=== PATIENT | female | born 1995 | race Caucasian/White ===

== ENCOUNTER 2019-12-24 17:37 | Inpatient (IN) ==
[2019-12-24] MEDS ORDERED: OXYTOCIN 30 UNITS/500 ML BAG IV PRN (19:26)
[2019-12-24] MEDS ORDERED: LACTATED RINGER'S 1,000 ML IV PRN (19:26)
[2019-12-24 19:46] LABS: Hematocrit (blood only) 33.8 % (37-47); Hemoglobin 11.6 g/dL (12.0-16.0); Mean Corpuscular Hemoglobin 30.3 pg (25-34); Mean Corpuscular Volume 88.3 fL (80-100); Mean Platelet Volume 9.4 fL (7.4-10.4); Platelet Count 163 K/uL (130-400); RDW Coefficient of Variation 13.9 % (11.5-14.5); RDW Standard Deviation 44.4 fL (36.4-46.3); Red Blood Count 3.83 M/uL (4.2-5.4); White Blood Count 9.23 K/uL (4.8-10.8)
[2019-12-24] MEDS ORDERED: DINOPROSTONE 10 MG INSERT PV ONE (20:15)
[2019-12-24 20:17] LABS: Mean Corpuscular Hgb Conc 34.3 g/dL (32-36)
[2019-12-24] MEDS ORDERED: ZOLPIDEM TARTRATE 5 MG TAB PO PRN (20:27)
[2019-12-24] MEDS ORDERED: BUTORPHANOL TARTRATE 1 MG/ML VIAL IV PRN (20:52)
--- NOTE | 2019-12-24 20:58 | Obstetrical Progress Note ---
Date of Service December 24, 2019 Assessment & Plan Admission and Anticipated Discharge Date Admission Date: December 24, 2019 Physical Exam Physical Exam: Admit Note 24 F P0000 at 25.2 weeks admitted with demise. Patient was seen in the office today with no FHT and ultrasound reveals demise. No bleeding or contractions. No history of high blood pressure or medical problems with this . NKA. care was uncomplicated. Cervix closed and thick. Cervidil 10 mg placed vaginally. Results & Data ([facility]) Vital Signs (Past 12 Hours) Vital Signs Temp Pulse Resp BP 12/24/19 19:12 37.0 C 111 H 20 132/79 12/24/19 18:18 36.9 C 114 H 18 130/73
--- NOTE | 2019-12-25 08:43 | History & Physical Report ---
Date of Service December 25, 2019 Assessment & Plan (1) IUFD at 20 weeks or more of gestation: 24 yo at 25.3 wks with IUFD, unfavorable cervix VSS Afebrile Desires genetic testing and Autopsy Labs Plan to continue with cervical ripening Unable to tolerate VE, PO Cytotec is ordered All questions were answered History of Present Illness Primary Care Provider: NO PCP Patient is a 24 yo at 25.2 wks who was admitted yesterday by Dr Zazueta for IUFD DFM for the last 4 days and presented to office yesterday, NO FHR found, placenta anterior, 24+ wks on US Cervidil was placed last night Patient has no complaints other than sadness No ctxs/ LOF/VB/ Fever/ chils/ N&V/ HUERTAS/ Change in vision Her has been uncomplicated Allergies Allergy/AdvReac Type Severity Reaction Status Date / Time No Known Allergies Allergy Verified 01/19/16 09:16 Home Medications Home Medications Medication Instructions Recorded Confirmed Type PNV cmb#95-ferrous fumarate-FA 1 tab PO DAILY 12/24/19 12/24/19 History [] Patient History Medical History No known health problems Surgical History Status post left foot surgery December 2018 Family History Other No known health problems Social History Preferred Language: Albanian Communication Ability: Effective Cpr Ambulance Driver Required: No Beliefs That Will Affect Care: None marital status: Single Current Living Situation: Significant Other Current Living Situation Comment: Lives with Efrain Other Information That Helps Us Care for You: No Feels Safe at Home: Yes Safety Concerns: Feels Safe At This Time Smoking Status: Never smoker Hx Alcohol Use: No Hx Substance Use: 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 Review of Systems All systems reviewed & are unremarkable except as noted in HPI & below Physical Exam Constitutional: WD/WN, vitals as above well developed and well nourished Sad Genitourinary: normal external appearance VE; Cervidil was at introitus, removed Cervix closed and firm Results & Data Vital Signs (Past 12 Hours) Vital Signs Temp Pulse Resp BP 12/25/19 08:01 116 H 126/73 12/25/19 05:20 37.0 C 116 H 18 118/78 12/24/19 22:43 37.0 C 96 H 18 125/67 Laboratory Results Lab Results 12/24/19 Range/Units 19:36 WBC 9.23 (4.8-10.8) K/uL RBC 3.83 L (4.2-5.4) M/uL Hgb 11.6 L (12.0-16.0) g/dL Hct 33.8 L (37-47) % MCV 88.3 (80-100) fL MCH 30.3 (25-34) pg MCHC 34.3 (32-36) g/dL RDW Std Deviation 44.4 (36.4-46.3) fL RDW Coeff of Garo 13.9 (11.5-14.5) % Plt Count 163 (130-400) K/uL MPV 9.4 (7.4-10.4) fL
[2019-12-25 08:50] LABS: Basophils # (auto) 0.03 K/uL (0-0.2); Basophils % (auto) 0.3 %; Eosinophils # (auto) 0.04 K/uL (0-0.5); Eosinophils % (auto) 0.4 %; Hematocrit (blood only) 34.3 % (37-47); Hemoglobin 11.6 g/dL (12.0-16.0); Immature Granulocytes # (auto) 0.04 K/uL (0.00-0.02); Immature Granulocytes % (auto) 0.4 %; Lymphocytes # (auto) 2.49 K/uL (1.2-3.4); Mean Corpuscular Hemoglobin 29.7 pg (25-34); Mean Corpuscular Hgb Conc 33.8 g/dL (32-36); Mean Corpuscular Volume 87.9 fL (80-100); Mean Platelet Volume 9.5 fL (7.4-10.4); Monocytes # (auto) 0.83 K/uL (0.11-0.59); Monocytes % (auto) 8.3 %; Neutrophils # (auto) 6.54 K/uL (1.4-6.5); Neutrophils % (auto) 65.6 %; Platelet Count 181 K/uL (130-400); RDW Coefficient of Variation 13.8 % (11.5-14.5); RDW Standard Deviation 44.5 fL (36.4-46.3); White Blood Count 9.97 K/uL (4.8-10.8)
[2019-12-25] MEDS ORDERED: miSOPROStoL 100 MCG TAB PO ONE (09:00)
[2019-12-25 09:17] LABS: Alanine Aminotransferase 27 U/L (12-78); Albumin Level 2.7 gm/dl (3.4-5.0); Aspartate Aminotransferase 21 U/L (15-37); Blood Urea Nitrogen 5 mg/dl (7-18); Calcium 8.8 mg/dl (8.5-10.1); Carbon Dioxide 24 mmol/L (21-32); Chloride 108 mmol/L (98-107); Est GFR (African American) > 150.0; Est GFR (Non-African American) 134.6; Glucose 113 mg/dl (70-99); Potassium 3.5 mmol/L (3.5-5.1); Sodium 137 mmol/L (136-145)
[2019-12-25 09:28] LABS: Albumin Globulin Ratio 0.6 (0.9-2); Alkaline Phosphatase 81 U/L (45-117); Bilirubin,Total 0.3 mg/dl (0.2-1); Globulin 4.3 gm/dl (2.5-4.0)
[2019-12-25 10:16] LABS: Amphetamines+Metham, Urine Neg (Neg); Barbiturates, Urine Neg (Neg); Benzodiazepine, Urine Neg (Neg); Cocaine, Urine Neg (Neg); MDMA (Ecstacy), Urine Neg (Neg); Methadone, Urine Neg (Neg); Opiate, Urine Neg (Neg); Phencyclidine, Urine Neg (Neg)
[2019-12-25] MEDS ORDERED: BUTORPHANOL TARTRATE 1 MG/ML VIAL IV PRN (13:05)
[2019-12-25] MEDS: miSOPROStoL 200 MCG TAB PO SCH ×3 (13:29→22:01)
--- NOTE | 2019-12-25 14:04 | Obstetrical Progress Note ---
Date of Service December 25, 2019 Assessment & Plan Admission and Anticipated Discharge Date Admission Date: December 24, 2019 Subjective Patient is reevaluated She feels about the same, no pain Occasional mild cramping, pain is 1-2/10 No N&V/ LOF/VB Labs pending All questions were answered Continue with cervical ripening Results & Data ([facility]) Vital Signs (Past 12 Hours) Vital Signs Temp Pulse Resp BP 12/25/19 12:13 109 H 127/74 12/25/19 12:12 37.2 C 18 12/25/19 08:01 37.4 C 16 126/73 12/25/19 05:20 37.0 C 116 H 18 118/78
[2019-12-25] MEDS ORDERED: ePHEDrine sulfate 50 MG/ML AMP ONE (19:28)
[2019-12-25] MEDS ORDERED: fentaNYL 2MCG/ML ROPIV 1.25MG/ML 100 ML BAG EPI ONE (19:29)
[2019-12-25] MEDS ORDERED: BUPIVACAINE 0.25% 30 ML VIAL ONE (19:29)
[2019-12-25] MEDS ORDERED: fentaNYL citrate 100 MCG/2 ML VIAL ONE ×2 (19:29→20:34)
--- NOTE | 2019-12-25 20:10 | Obstetrical Progress Note ---
Date of Service December 25, 2019 Assessment & Plan Admission and Anticipated Discharge Date Admission Date: December 24, 2019 Subjective Patient is reevaluated She feels constant cramping and crying with discomfort Desires epidural for pain Minimal bleeding Declines VE now Dr. Talbert is here for epidural AROM after epidural Results & Data ([facility]) Vital Signs (Past 12 Hours) Vital Signs Temp Pulse Resp BP 12/25/19 19:27 37.2 C 18 12/25/19 19:23 113 H 142/93 H 12/25/19 14:53 37.1 C 100 H 20 126/78 12/25/19 12:13 109 H 127/74 12/25/19 12:12 37.2 C 18
--- NOTE | 2019-12-25 20:36 | Anesthesiology Consultation ---
Date of Service December 25, 2019 Assessment & Plan Chart Review Chart Review: Acceptable Risk for Labor Epidural Consults Requested none History Height/Weight Height: 5 ft 3 in Weight: 67.585 kg Allergies Allergy/AdvReac Type Severity Reaction Status Date / Time No Known Allergies Allergy Verified 01/19/16 09:16 Medications Home Medications Medication Instructions Recorded Confirmed Last Taken PNV cmb#95-ferrous fumarate-FA 1 tab PO DAILY 12/24/19 12/24/19 12/23/19 [] Active Medications Generic Name Dose Route Start Last Admin Trade Name Freq PRN Reason Stop Dose Admin Lactated Ringer's 1,000 mls @ 125 mls/hr 12/24/19 19:26 12/25/19 20:21 Lr IV 12/26/19 19:25 125 mls/hr .Q8H PRN Infusion L&D Protocol Protocol Misoprostol 200 mcg 12/25/19 13:00 12/25/19 17:32 Cytotec PO 01/24/20 12:59 200 mcg Q4 GABRIELLA Administration Zolpidem Tartrate 5 mg 12/24/19 20:27 12/25/19 00:32 Ambien PO 01/23/20 20:26 5 mg HS PRN Administration Sleep Past Medical History Medical History No known health problems Past Family History Family History Other No known health problems Past Surgical History Surgical History Status post left foot surgery December 2018 Social History Smoking Status: Never smoker Hx Alcohol Use: No Hx Substance Use: No Physical Exam Vital Signs Last Vital Signs Temp 37.2 C 12/25/19 19:27 Pulse 81 12/25/19 20:34 Resp 18 12/25/19 20:30 BP 114/59 L 12/25/19 20:34 Pulse Ox 97 12/25/19 20:34 Testing Laboratory Results 12/25/19 08:33 12/25/19 08:33 Blood Type O Positive 12/25/19 08:33
[2019-12-25] MEDS ORDERED: DiphenhydrAMINE HCL 50 MG/ML VIAL IV PRN (20:38)
[2019-12-25] MEDS ORDERED: NALOXONE HCL 0.4 MG/1 ML VIAL/CARP IV PRN (20:38)
[2019-12-25] MEDS ORDERED: fentaNYL 2MCG/ML ROPIV 1.25MG/ML 100 ML BAG EPI PRN (20:38)
[2019-12-25] MEDS ORDERED: ePHEDrine sulfate 50 MG/ML AMP IV PRN (20:38)
[2019-12-25] MEDS ORDERED: NALBUPHINE HCL INJ 10 MG/ML AMP IV PRN (20:38)
[2019-12-25] MEDS ORDERED: NALOXONE HCL 1 MG in SODIUM CHLORIDE 0.9% 1000ML 1,000 ML IV PRN (20:38)
[2019-12-25] MEDS ORDERED: OXYTOCIN 30 UNITS/500 ML BAG IV PRN ×2 (21:45→23:27)
--- NOTE | 2019-12-25 21:45 | Obstetrical Progress Note ---
Date of Service December 25, 2019 Assessment & Plan Admission and Anticipated Discharge Date Admission Date: December 24, 2019 Subjective Patient is reevaluated Due for 4th dose of Cytotec She feels comfortable now, received epidural for pain Minimal bleeding VE; 1/ 70%/ -2, AROM'ed, abundant clear fluid, vertex but ballotable Discussed labs Ctxs q 2-3 min Plan to hold on Cytotec and augment with Pitocin as needed Continue to monitor Results & Data ([facility]) Vital Signs (Past 12 Hours) Vital Signs Temp Pulse Resp BP Pulse Ox 12/25/19 21:41 100 H 93 12/25/19 21:40 104 H 130/63 12/25/19 21:39 104 H 95 12/25/19 21:34 97 H 94 12/25/19 21:29 97 H 95 12/25/19 21:28 98 H 94 12/25/19 21:24 102 H 96 12/25/19 21:23 95 H 113/68 12/25/19 21:22 97 H 94 12/25/19 21:19 96 H 95 12/25/19 21:14 92 H 96 12/25/19 21:11 103 H 94 12/25/19 21:09 94 H 96 12/25/19 21:08 90 109/65 12/25/19 21:05 93 H 94 12/25/19 21:04 86 95 12/25/19 20:59 92 H 93 12/25/19 20:55 18 12/25/19 20:54 90 116/75 96 12/25/19 20:50 86 18 112/59 L 12/25/19 20:49 86 97 12/25/19 20:45 18 12/25/19 20:44 89 97 12/25/19 20:39 91 H 98 12/25/19 20:37 18 12/25/19 20:36 83 114/68 12/25/19 20:34 81 114/59 L 97 12/25/19 20:32 84 110/66 12/25/19 20:30 78 18 109/65 12/25/19 20:29 79 96 12/25/19 20:28 82 112/62 12/25/19 20:25 74 18 119/54 L 12/25/19 20:24 83 97 12/25/19 20:23 107 H 94 12/25/19 20:20 91 H 18 115/74 12/25/19 20:19 94 H 96 12/25/19 20:14 111 H 98 12/25/19 20:03 18 12/25/19 19:27 37.2 C 18 12/25/19 19:23 113 H 142/93 H 12/25/19 14:53 37.1 C 100 H 20 126/78 12/25/19 12:13 109 H 127/74 12/25/19 12:12 37.2 C 18
[2019-12-25] MEDS ORDERED: BENZOCAINE 20% AER SPR 82.5 GM CAN EXT PRN (23:27)
[2019-12-25] MEDS ORDERED: SUPERCREAM 0.870% 15 GM JAR EXT PRN (23:27)
[2019-12-25] MEDS ORDERED: HYDROCORTISONE ACETATE 25 MG SUPP PR PRN (23:27)
[2019-12-25] MEDS ORDERED: DIPHTHERIA/TETANUS/PERTUSSIS 0.5 ML SYR/VIAL IM ONE (23:27)
[2019-12-25] MEDS ORDERED: ACETAMINOPHEN 325 MG TAB PO PRN (23:27)
[2019-12-25] MEDS ORDERED: OXYCODONE/ACETAMINOPHEN 5mg/325mg TAB PO PRN (23:27)
[2019-12-25] MEDS ORDERED: IBUPROFEN 600 MG TAB PO PRN (23:27)
[2019-12-25] MEDS ORDERED: bisacodyL 10 MG SUPP PR PRN (23:27)
--- NOTE | 2019-12-26 07:00 | Delivery Summary ---
DATE OF OPERATION: 12/25/2019 TIME OF DELIVERY OF BABY: 23:16 DETAILS OF DELIVERY: The patient is a 24-year-old G1, P0 at 25 weeks and 3 days, who was admitted the day before with intrauterine demise diagnosed in the office with an ultrasound. She received Cervidil overnight and her cervix was closed on the morning of 12/25/2019 and then she started on p.o. Cytotec x 3 doses and received epidural for pain. Then she was AROM'ed and soon after that she was found to be fully dilated and baby was in the perineum. She pushed once and delivered the whole baby without difficulty. The patient did not want to look at the baby. Cord was clamped x2 and cut and baby was handed off to the waiting nursing team. The cord was noted to be hyper-coiled twisted around itself many times. Then the placenta was found to be in the vagina, delivered spontaneous as intact and complete. It appeared to be normal. The uterus was explored, found to be empty. Lower segment was cleared off all clots and debris. Fundus was firm. EBL was 100 mL. The perineum and vagina was intact. Then the patient desired cytogenetic testing and declined autopsy. A small piece of placenta was incised and sent to the lab in a special cup for cytogenetic testing and the fetus was examined to be grossly normal, normal hands and feet, normal fingers and toes, and slight edema of neck and slight skin maceration around the neck and abdomen was found to be ecchymotic which might indicate abdominal bleeding. Normal male genitalia, normal spine and head. The mom tolerated the procedure well. Instrument and sponge count was correct x1. No complications happened. I was present during whole procedure. I attest to the content of the Intraoperative Record and any orders documented therein. Any exceptions are noted below. SANDRAD
[2019-12-26 07:03] LABS: Hematocrit (blood only) 34.7 % (37-47); Hemoglobin 11.7 g/dL (12.0-16.0); Mean Corpuscular Hemoglobin 29.9 pg (25-34); Mean Corpuscular Hgb Conc 33.7 g/dL (32-36); Mean Corpuscular Volume 88.7 fL (80-100); Mean Platelet Volume 9.8 fL (7.4-10.4); Platelet Count 157 K/uL (130-400); RDW Coefficient of Variation 13.9 % (11.5-14.5); Red Blood Count 3.91 M/uL (4.2-5.4)
[2019-12-26] MEDS ORDERED: FERROUS SULFATE 325 MG TAB PO SCH (08:00)
[2019-12-26] MEDS ORDERED: PRENATAL VITAMIN 1 TAB PO SCH (08:00)
[2019-12-26] MEDS ORDERED: DOCUSATE SODIUM 100 MG CAP PO SCH (08:00)
--- NOTE | 2019-12-26 08:31 | Anesthesia Procedure Note ---
Date of Service December 26, 2019 Anesthesia Post Epidural Note Vital Signs Vital Signs: Temp Pulse Resp BP Pulse Ox 37.3 C 88 16 113/83 94 12/26/19 03:45 12/26/19 08:24 12/26/19 03:45 12/26/19 08:24 12/25/19 23:22 Notes Mental Status: alert / awake / arousable and participated in evaluation Nausea / Vomiting: adequately controlled Pain: adequately controlled Airway Patency, RR, SpO2: stable & adequate BP & HR: stable & adequate Hydration State: stable & adequate Neuraxial Anesthesia: was administered and sensory block is resolving Anesthetic Complications: no major complications apparent and Pt Satisfied with anesthetic care Epidural: Removed without complications and With tip intact Notes: Epidural site clean, dry and intact. No signs of edema, erythema or bruising at insertion site. Pt instructed to request anesthesia if she has residual lower extremity numbness or if she develops lower extremity pain or weakness, back pain or headache. Informed patient that she is at increased risk of developing PDPH. Will order cosyntropin in attempt to decrease possible occurrence. Encouraged patient to drink lots of fluids and rest as possible. If she does develop a headache, she was encouraged to lay flat and drink caffeine. In addition, we will call patient at home each day over the next few days to screen for headache development. Plan is to bring the patient direct to OB or to [facility] if she does require a blood patch in order to avoid the patient needing to present to the ED due to COVID-19.
[2019-12-26] MEDS ORDERED: COSYNTROPIN 1,000 MCG in SODIUM CHLORIDE 0.9% 50 ML IV ONE (09:15)
[2019-12-26] MEDS ORDERED: SERTRALINE HCL 50 MG TABLET PO STA (10:02)
--- NOTE | 2019-12-26 11:54 | Obstetrical Progress Note ---
Date of Service December 26, 2019 Assessment & Plan (1) IUFD at 20 weeks or more of gestation: demise s/p vaginal delivery pt doing well anticipate disch this PM Subjective Ambulation: ambulating normally Voiding: no voiding problems Passing Gas:: Yes Diet Tolerance:: regular diet Lochia:: Small Feeding Type:: breast feeding Review of Systems All systems reviewed & are unremarkable except as noted in HPI & below Results & Data Vital Signs (Past 12 Hours) Vital Signs Temp Pulse Resp BP 12/26/19 11:49 92 H 136/89 12/26/19 08:24 88 113/83 12/26/19 08:00 37.1 C 20 12/26/19 03:45 37.3 C 16 12/26/19 03:44 96 H 116/56 L 12/26/19 01:49 96 H 120/71 12/26/19 01:40 37.2 C 18 12/26/19 01:38 88 129/76 12/26/19 01:37 100 H 125/79 12/26/19 01:23 94 H 107/55 L 12/26/19 01:10 18 12/26/19 01:08 100 H 113/70 12/26/19 00:53 96 H 121/68 12/26/19 00:40 18 12/26/19 00:38 100 H 114/65 12/26/19 00:25 18 12/26/19 00:23 100 H 120/73 12/26/19 00:10 18 12/26/19 00:08 103 H 115/75 12/25/19 23:55 18 12/25/19 23:54 109 H 120/69 12/25/19 23:53 127 H 139/67
[2019-12-26] MEDS ORDERED: bisacodyL 5 MG TABEC PO SCH (20:00)
--- NOTE | 2019-12-27 10:42 | Communication Note ---
Date of Service: December 27, 2019 At 0920 I telephoned pt regarding a possible PDPH, NO answer. I left a message on answering machine advising her to call hospital skoog operator and ask for me michael smith she have a PDPH and wish to be treated.
[2019-12-27 23:40] LABS: Anti Cardiolipin Ab IgG <14 GPL; Anti Cardiolipin Ab IgM <12 MPL; Anti-Cardiolipin Ab IgA <11 APL; B2 Glycoprotein IgA <9 SAU (<=20); B2 Glycoprotein IgG <9 SGU (<=20); B2 Glycoprotein IgM <9 SMU (<=20)
--- NOTE | 2019-12-28 22:26 | Discharge Summary (DS) ---
DETAILS OF ADMISSION: The patient is a 24-year-old G1, P0 at 25 weeks and 2 days of gestation, who was admitted on 12/24/2019 for intrauterine demise noted in the office by ultrasound. The patient presented with decreased movement for the last 4 days and office ultrasound revealed no heart rate, but baby was measuring 24 plus weeks with normal AGUSTO and placenta. The patient was brought to the hospital. Cervical ripening was started with Cervidil. I removed the Cervidil on the morning of 12/25/2019. Her cervix was closed and firm and then she did not tolerate vaginal exam very well, so we continued with ripening with p.o. Cytotec. She received 3 doses and then she became painful and she received epidural for pain. Then I AROMed her cervix and then she was found to be fully dilated and baby was in the perineum. With one push the fetus was delivered completely and then cord was clamped x2 and cut. Baby was handed off to the waiting nursing team. The patient declined looking at the baby. On the examination of the baby, there was noted to be normal anatomy, normal male fetus with normal extremities, hands, feet fingers and toes and there was ecchymosis on the abdomen which may indicate intraabdominal bleeding and there was mild maceration on the skin of neck. The umbilical cord was found to be hypercoiled many times around itself which might indicate a blood flow block to the fetus. Then placenta was delivered after the baby spontaneously as intact and complete. Uterus was explored and found to be empty. Lower segment was cleared of all clots and debris. Fundus was firm. EBL was 100 mL. Then patient desired cytogenetic testing, but declined autopsy. A piece of placenta was obtained and sent to pathology for cytogenetics. The patient recovered well overnight. No complaints next day. She was discharged on 12/26/[address] Morales. Discharge instructions were given. Prescriptions were written. She is to be seen in the office in 2 weeks. All questions were answered.
== END 2019-12-26 13:15 | disposition home or self-care (01) | DRG 807 ==
LOC: ED 17:37 → 4S1 18:12 → EDSTATUS 18:12

== ENCOUNTER 2021-09-02 07:51 | Inpatient (IN) ==
[2021-09-02] MEDS ORDERED: DINOPROSTONE 10 MG INSERT PV ONE (08:25)
--- NOTE | 2021-09-02 08:44 | History & Physical Report ---
Date of Service September 02, 2021 Assessment & Plan (1) History of stillbirth in currently patient: (2) Gestational [-induced] hypertension without significant proteinuria, complicating childbirth: Plan: She is a 26-year-old -1-0-0 at 37 weeks of gestation with history of prior stillbirth at 25 weeks in 2019, recently diagnosed with gestational hypertension and no proteinuria. Vital signs stable afebrile, Doing well except anxiety for history of IUFD and recent diagnosis with gestational hypertension, Discussed the lung maturation and brain development between 37 to 39 weeks, and less likelyhood of admission to NICU at or after 39 weeks Discussed diagnosis of gestational hypertension and indication of induction, and possible expectant management till 38 weeks with close monitoring of BP's, kick counts and NST's After long discussion she decided to have induction today. Plan to admit, labs, Cervidil for cervical ripening. All questions were answered. Admission and Anticipated Discharge Date Admission Date: September 02, 2021 History of Present Illness Primary Care Provider: NO PCP Patient is an 26-year-old at 37 weeks of gestation who was scheduled for induction of labor for history of IUFD at 25 weeks in 2019 and recent elevation of blood pressures in the office with no protein and normal labs and diagnosed with gestational hypertension. Patient has no complaints other than anxiety. She had been anxious during whole due to her history. Decided to not to start anything. She denies contractions, leakage of fluid, vaginal bleeding, headaches, change in her vision, nausea vomiting, epigastric or right upper quadrant pain. She reports good movements. Her has been otherwise uncomplicated, she has been having NSTs 2 times a week and they have been reactive. Growth scans have been normal . EFW has been around 85th percentile GBS negative. Allergies Allergy/AdvReac Type Severity Reaction Status Date / Time No Known Allergies Allergy Verified 01/19/16 09:16 Home Medications Medication Instructions Recorded Confirmed Type vit no.95-ferrous 1 tab PO DAILY 12/24/19 12/24/19 History fumarate 28 mg-folic acid 800 mcg tablet () ibuprofen 600 mg tablet 600 mg PO Q4H #30 tab 12/26/19 Rx lorazepam 0.5 mg tablet (Ativan) 0.5 mg PO HS PRN #6 tab 12/26/19 Rx sertraline 50 mg tablet (Zoloft) 50 mg PO DAILY #30 tab 12/26/19 Rx Patient History Medical History (Updated 09/02/21 @ 08:43 by Chiquita Valenzuela MD) No known health problems Surgical History Status post left foot surgery December 2018 Family History Other No known health problems Social History Smoking Status: Never smoker Hx Alcohol Use: No Hx Substance Use: No Preferred Language: Taiwanese Communication Ability: Effective Bobbin Marker Required: No Beliefs That Will Affect Care: None marital status: Current Living Situation: Spouse Current Living Situation Comment: Lives with Efrain Other Information That Helps Us Care for You: No Feels Safe at Home: Yes Safety Concerns: Feels Safe At This Time Assistive Devices: None OB History Intrauterine demise at 25 weeks in 12/2019, patient delivered vaginal without complications. Declined autopsy. Review of Systems as per Subjective / HPI + anxiety Physical Exam Constitutional: well developed and well nourished Patient is comfortable with no complaints other than mild anxiety due to her past history and current diagnosis of gestational hypertension. Gastrointestinal (Abdomen): Inspection/Auscultation: abdomen normal to inspection (Nontender, gravid) Genitourinary: normal external appearance OB Exam Abdomen: + vertex Manual OB Exam: + cervical dilation 2 cm, + cervical effacement 50% and + station -2 OB Exam Monitor Tracing: + external uterine monitor used and + category I (Reactive strip) Results & Data ([facility]) Vital Signs (Past 12 Hours) Vital Signs Temp Pulse Resp BP 09/02/21 08:19 105 H 136/87 09/02/21 08:12 36.9 C 18
[2021-09-02 08:57] LABS: Creatinine Urine Random 57.1 mg/dl; Protein Creatinine Ratio Urine 0.1 (0-0.2); Total Protein Urine Random 6.6 mg/dl (0-11.9)
[2021-09-02] MEDS ORDERED: ONDANSETRON INJ 2 MG/ML 2 ML VIAL IV PRN ×2 (08:59→16:36)
[2021-09-02] MEDS ORDERED: ACETAMINOPHEN 325 MG TAB PO PRN ×2 (08:59→18:51)
[2021-09-02] MEDS ORDERED: OXYTOCIN 30 UNITS/500 ML BAG IV PRN ×2 (08:59→18:51)
[2021-09-02] MEDS ORDERED: CALCIUM CARBONATE 500 MG CHEWABLE TAB PO PRN (08:59)
[2021-09-02] MEDS ORDERED: ACETAMINOPHEN 1,000 MG/100 ML VIAL IV PRN (09:06)
[2021-09-02] MEDS ORDERED: BUTORPHANOL TARTRATE 1 MG/ML VIAL IV PRN (09:06)
[2021-09-02 09:10] LABS: Appearance Urine Clear (Clear); Bacteria Urine Automated 1+ (Negative); Bilirubin Urine Negative (Negative); Blood Urine Negative (Negative); Color Urine Yellow; Epithelial Cell Urine Auto >30 /lpf (0-5); Glucose Urine UA Negative (Negative); Ketones Urine Negative (Negative); Leukocyte Esterase Urine 2+ (Negative); Nitrite Urine Negative (Negative); Protein Urine Negative (Negative); RBC Urine Automated 0-4 /hpf (0-4); Specific Gravity Urine 1.009 (1.000-1.030); Urobilinogen Urine Negative (Negative); pH Urine 6.5 (4.5-7.5)
[2021-09-02 09:18] LABS: Basophils # (auto) 0.01 K/uL (0-0.2); Basophils % (auto) 0.1 %; Eosinophils # (auto) 0.04 K/uL (0-0.5); Eosinophils % (auto) 0.4 %; Hemoglobin 13.1 g/dL (12.0-16.0); Immature Granulocytes # (auto) 0.01 K/uL (0.00-0.02); Immature Granulocytes % (auto) 0.1 %; Lymphocytes # (auto) 1.98 K/uL (1.2-3.4); Mean Corpuscular Hgb Conc 33.6 g/dL (32-36); Mean Corpuscular Volume 92.2 fL (80-100); Mean Platelet Volume 11.1 fL (7.4-10.4); Monocytes # (auto) 0.73 K/uL (0.11-0.59); Monocytes % (auto) 8.1 %; Neutrophils # (auto) 6.24 K/uL (1.4-6.5); Neutrophils % (auto) 69.3 %; Nucleated RBC # (auto) 0.03 K/uL (0-0); Nucleated RBC % (auto) 0.4 %; Platelet Count 131 K/uL (130-400); RDW Coefficient of Variation 13.5 % (11.5-14.5); RDW Standard Deviation 45.2 fL (36.4-46.3); Red Blood Count 4.23 M/uL (4.2-5.4); White Blood Count 9.01 K/uL (4.8-10.8)
[2021-09-02 09:20] LABS: Albumin Level 2.5 gm/dl (3.4-5.0); BUN Creatinine Ratio 9.2 (10-20); Calcium 8.5 mg/dl (8.5-10.1); Est GFR (African American) 146.6 ml/min; Est GFR (Non-African American) 126.5 ml/min; Potassium 3.9 mmol/L (3.5-5.1)
[2021-09-02 09:23] LABS: Albumin Globulin Ratio 0.7 (0.9-2); Bilirubin,Total 0.2 mg/dl (0.2-1); Globulin 3.7 gm/dl (2.5-4.0); Total Protein 6.2 gm/dl (6.4-8.2)
[2021-09-02] MEDS: LACTATED RINGER'S 1,000 ML IV PRN ×2 (12:52→14:15)
[2021-09-02] MEDS ORDERED: ePHEDrine sulfate 50 MG/ML AMP ONE (13:53)
[2021-09-02] MEDS ORDERED: SODIUM CHLORIDE 0.9% INJ 10 ML VIAL ONE (13:53)
[2021-09-02] MEDS ORDERED: BUPIVACAINE 0.25% 30 ML VIAL ONE (13:54)
[2021-09-02] MEDS ORDERED: fentaNYL 2MCG/ML ROPIVACAINE 1.25MG/ML 100 ML BAG EPI ONE (13:54)
[2021-09-02] MEDS ORDERED: fentaNYL citrate 100 MCG/2 ML VIAL ONE (13:54)
--- NOTE | 2021-09-02 14:18 | Obstetrical Progress Note ---
Date of Service September 02, 2021 Assessment & Plan Admission and Anticipated Discharge Date Admission Date: September 02, 2021 Subjective Patient is reevaluated. She has been feeling regular contractions for the last 2 hours and they have been painful. IV Tylenol did not help and desires epidural for pain. Vaginal exam, cervix is 3 to 4 cm dilated, 60% effaced, central, head at -1 station with a tight bulging bag. heart rate category 1 and toco with contractions every 1 to 2 minutes. Vital signs stable afebrile, Labs are within normal limits, Continue to monitor and epidural for pain. Results & Data ([facility]) Vital Signs (Past 12 Hours) Vital Signs Temp Pulse Resp BP Pulse Ox 09/02/21 14:12 94 H 98 09/02/21 14:07 100 H 99 09/02/21 14:02 102 H 98 09/02/21 14:00 100 H 131/84 09/02/21 13:57 111 H 99 09/02/21 11:00 36.7 C 09/02/21 10:10 95 H 133/89 09/02/21 08:57 105 H 129/86 09/02/21 08:19 105 H 136/87 09/02/21 08:12 36.9 C 18
--- NOTE | 2021-09-02 15:38 | Obstetrical Progress Note ---
Date of Service September 02, 2021 Assessment & Plan Admission and Anticipated Discharge Date Admission Date: September 02, 2021 Subjective Patient is reevaluated. She is comfortable now and denies any pain or com plaints. Cervix is 4 to 5 cm dilated, 60 to 70% effaced, head at -2 station, AROM and clear fluid was obtained. heart rate category 1, [place] with contractions every 1 to 4 minutes. Continue to monitor closely, Anticipate . Results & Data ([facility]) Vital Signs (Past 12 Hours) Vital Signs Temp Pulse Resp BP Pulse Ox 09/02/21 15:34 37.2 C 91 H 112/64 09/02/21 15:32 105 H 99 09/02/21 15:29 94 H 121/71 09/02/21 15:27 105 H 97 09/02/21 15:26 102 H 123/72 09/02/21 15:22 96 H 98 09/02/21 15:21 105 H 133/78 09/02/21 15:17 99 H 98 09/02/21 15:15 100 H 120/72 09/02/21 15:12 89 98 09/02/21 15:10 90 126/73 09/02/21 15:07 106 H 98 09/02/21 15:05 98 H 128/77 09/02/21 15:02 98 H 99 09/02/21 15:00 92 H 18 144/71 H 09/02/21 14:57 90 99 09/02/21 14:54 107 H 135/76 09/02/21 14:52 105 H 99 09/02/21 14:50 95 H 126/76 09/02/21 14:47 98 H 98 09/02/21 14:46 96 H 126/70 09/02/21 14:44 18 09/02/21 14:42 110 H 18 99 09/02/21 14:40 18 09/02/21 14:38 98 H 18 130/76 09/02/21 14:37 103 H 98 09/02/21 14:36 110 H 18 130/79 09/02/21 14:34 100 H 18 136/77 09/02/21 14:33 96 H 123/74 09/02/21 14:32 96 H 99 09/02/21 14:27 96 H 98 09/02/21 14:22 90 99 09/02/21 14:17 93 H 98 09/02/21 14:12 94 H 98 09/02/21 14:07 100 H 99 09/02/21 14:02 102 H 98 09/02/21 14:00 100 H 131/84 09/02/21 13:57 111 H 99 09/02/21 11:00 36.7 C 09/02/21 10:10 95 H 133/89 09/02/21 08:57 105 H 129/86 09/02/21 08:19 105 H 136/87 09/02/21 08:12 36.9 C 18
[2021-09-02] MEDS ORDERED: fentaNYL 2MCG/ML ROPIVACAINE 1.25MG/ML 100 ML BAG EPI PRN (16:36)
[2021-09-02] MEDS ORDERED: diphenhydrAMINE 50 MG/ML VIAL IV PRN (16:36)
[2021-09-02] MEDS ORDERED: ePHEDrine sulfate 50 MG/ML AMP IV PRN (16:36)
[2021-09-02] MEDS ORDERED: NALOXONE HCL 1 MG in SODIUM CHLORIDE 0.9% 1000ML 1,000 ML IV PRN (16:36)
[2021-09-02] MEDS ORDERED: NALOXONE HCL 0.4 MG/1 ML VIAL/CARP IV PRN (16:36)
[2021-09-02] MEDS ORDERED: NALBUPHINE HCL INJ 10 MG/ML AMP IV PRN (16:36)
--- NOTE | 2021-09-02 16:36 | Anesthesiology Consultation ---
Date of Service September 02, 2021 Assessment & Plan (1) Encounter for pre-operative examination: Chart Review Chart Review: Patient NOT seen in Pre Admission Testing and Acceptable Risk for Labor Epidural Consults Requested none ASA ASA2 Proposed Anesthesia Anesthesia Type: Labor Epidural Risk / Benefits Reviewed With: PT / POA / Parent / Guardian, Accepts Plan and Informed Consent Obtained History Height/Weight Height: 5 ft 3 in Weight: 80.286 kg Allergies Allergy/AdvReac Type Severity Reaction Status Date / Time No Known Allergies Allergy Verified 01/19/16 09:16 Medications Home Medications Medication Instructions Recorded Confirmed Last Taken vits [id number] fum 1 tab PO DAILY 09/02/21 09/02/21 09/01/21 27 mg iron-folic acid 800 mcg tablet ( Vitamin) Active Medications Generic Name Dose Route Start Last Admin Trade Name Freq PRN Reason Stop Dose Admin Lactated Ringer's 1,000 mls @ 150 mls/hr 09/02/21 08:59 09/02/21 14:15 Lr IV 09/04/21 08:58 125 mls/hr .[id number] PRN Administration L&D Protocol Protocol Acetaminophen 1,000 mg in 100 mls @ 400 mls/hr 09/02/21 09:06 09/02/21 13:10 Ofirmev IV 09/05/21 09:05 Infused Q8H PRN Infusion Pain Past Medical History Medical History (Updated 09/02/21 @ 16:36 by Carlos Fitzpatrick MD) No known health problems Exercise / Class Metabolic Activity II 4-5 Yardwork/Stairs/Walk up hill Past Family History Family History Other No known health problems Past Surgical History Surgical History Status post left foot surgery December 2018 Past Anesthesia History No Hx of Anesthesia Complications and No Family Hx of Anesthesia Complications History of PONV No Hx of PONV and No Hx of Motion Sickness Social History Smoking Status: Never smoker Hx Alcohol Use: No Hx Substance Use: No Physical Exam Vital Signs Last Vital Signs Temp 37.2 C 09/02/21 15:34 Pulse 84 09/02/21 16:32 Resp 18 09/02/21 15:00 BP 113/60 09/02/21 16:21 Pulse Ox 99 09/02/21 16:32 ENMT Mouth: no dentition abnormality Thyromental Distance: > or= 3.5 Finger Breadths Mallampati Class: II Neck normal visual inspection Respiratory normal respiratory effort Auscultation: lungs clear to auscultation bilaterally Cardiovascular Rate/Rhythm: regular rate and regular rhythm Psychiatric Orientation: alert Testing Laboratory Results 09/02/21 08:43 09/02/21 08:43 Urine Color Yellow 09/02/21 Unknown Urine Appearance Clear (Clear) 09/02/21 Unknown Urine pH 6.5 (4.5-7.5) 09/02/21 Unknown Ur Specific [place] 1.009 (1.000-1.030) 09/02/21 Unknown Urine Protein Negative (Negative) 09/02/21 Unknown Urine Glucose (UA) Negative (Negative) 09/02/21 Unknown Urine Ketones Negative (Negative) 09/02/21 Unknown Urine Nitrite Negative (Negative) 09/02/21 Unknown Ur Leukocyte Esterase 2+ (Negative) H 09/02/21 Unknown Urine WBC (Auto) 10-30 /hpf (0-5) H 09/02/21 Unknown Urine RBC (Auto) 0-4 /hpf (0-4) 09/02/21 Unknown U Hyaline Cast (Auto) 5-10 /lpf (0-5) H 09/02/21 Unknown U Epithel Cells (Auto) >30 /lpf (0-5) H 09/02/21 Unknown Urine Bacteria (Auto) 1+ (Negative) H 09/02/21 Unknown
[2021-09-02] MEDS ORDERED: MINERAL OIL 30 ML UDC ONE (17:11)
[2021-09-02] MEDS ORDERED: LIDOCAINE 1% LOCAL 20 ML VIAL ONE ×2 (17:58→18:31)
[2021-09-02] MEDS ORDERED: oxyCODONE/ACETAMINOPHEN 5mg/325mg TAB PO PRN (18:51)
[2021-09-02] MEDS ORDERED: MEASLES, MUMPS & RUBELLA VIRUS VIAL SQ ONE (18:51)
[2021-09-02] MEDS ORDERED: SUPERCREAM 0.870% 15 GM JAR EXT PRN (18:51)
[2021-09-02] MEDS ORDERED: DIPHTHERIA/TETANUS/PERTUSSIS 0.5 ML SYR/VIAL IM ONE (18:51)
[2021-09-02] MEDS ORDERED: BENZOCAINE 20% AER SPR 82.5 GM CAN EXT PRN (18:51)
[2021-09-02] MEDS ORDERED: bisacodyL 10 MG SUPP PR PRN (18:51)
[2021-09-02] MEDS ORDERED: HYDROCORTISONE ACETATE 25 MG SUPP PR PRN (18:51)
--- NOTE | 2021-09-02 19:12 | Delivery Summary ---
Vaginal Delivery Summary Date of Service September 02, 2021 Vaginal Delivery Summary Patient was found to be fluid dilated and desire to push she pushed for about half an hour and delivered the head without difficulty. There was a nuchal cord around the neck x1 which was reduced and then shoulders were turned around counterclockwise and delivered with minimal traction without difficulty. Baby was handed to the mother that her mouth and nose were suctioned and cord was clamped times 2 and cut at 1 minute delay. Baby was vigorously moving and crying. Time of delivery was 5:49 PM. And then vagina and perineum were checked for lacerations there was a second-degree perineal laceration which was extending close to the perianal skin. Rectal exam was done and excellent sphincter tone was noted. There the muscles around the external sphincter were held with Allis clamps and brought to the midline to reinforce the sphincter muscle. Those were repaired with 2-0 Vicryl with [id number] stitches x3. Rectal exam was repeated and excellent sphincter tone was noted and no sutures were felt. Gloves were changed. Then the placenta was found to be the vagina delivered spontaneously as intact and complete. Uterus was explored and found to be empty and lower segment was cleared of all clots and debris. And there was a second-degree vaginal laceration which is extending into the right lower vagina wall and to the right labia. It was repaired with another 2- 0 Vicryl in a running locked fashion bringing the vaginal mucosa together perineal body muscles together and skin in a subcuticular fashion there was some oozing on the middle of the incision of those were controlled with [id number] stitches x2. Labia on the right side was repaired with 3-0 Vicryl in a running fashion and connected with the repair in the midline vagina and perineum. And there was a small left labial laceration which was again first-degree and it was repaired with 3-0 Vicryl in a running fashion. And device the powder was placed in the vagina laceration to provide hemostasis. At the end of the procedure excellent hemostasis was achieved. The sponge needle instrument count was correct x3. Baby was a viable male Apgars 8/9 weight is pending mom and baby are doing well. No complications happened and I was present during whole procedure.
[2021-09-02] MEDS ORDERED: SERTRALINE HCL 50 MG TABLET PO ONE (19:30)
--- NOTE | 2021-09-02 19:51 | Anesthesia Procedure Note ---
Date of Service September 02, 2021 Anesthesia Post Epidural Note Vital Signs Vital Signs: Temp Pulse Resp BP Pulse Ox 37.0 C 98 H 18 139/68 99 09/02/21 16:00 09/02/21 19:35 09/02/21 17:49 09/02/21 19:35 09/02/21 18:47 Pain Intensity Lower Abdomen: Pain Intensity: 7 Notes Mental Status: alert / awake / arousable Nausea / Vomiting: adequately controlled Pain: adequately controlled Airway Patency, RR, SpO2: stable & adequate BP & HR: stable & adequate Hydration State: stable & adequate Neuraxial Anesthesia: was administered and sensory block is resolving Anesthetic Complications: no major complications apparent and Pt Satisfied with anesthetic care Epidural: Removed without complications and With tip intact
[2021-09-02] MEDS: DOCUSATE SODIUM 100 MG CAP PO SCH (20:45)
[2021-09-03 06:49] LABS: Hematocrit (blood only) 35.1 % (37-47); Hemoglobin 11.6 g/dL (12.0-16.0); Mean Corpuscular Hemoglobin 30.6 pg (25-34); Mean Corpuscular Volume 92.6 fL (80-100); Mean Platelet Volume 11.2 fL (7.4-10.4); Platelet Count 120 K/uL (130-400); RDW Coefficient of Variation 13.7 % (11.5-14.5); RDW Standard Deviation 46.2 fL (36.4-46.3); Red Blood Count 3.79 M/uL (4.2-5.4); White Blood Count 11.67 K/uL (4.8-10.8)
[2021-09-03] MEDS: IBUPROFEN 600 MG TAB PO PRN ×3 (09:03→20:23)
[2021-09-03] MEDS: DOCUSATE SODIUM 100 MG CAP PO SCH ×2 (09:03→20:23)
[2021-09-03] MEDS: FERROUS SULFATE 325 MG TAB PO SCH (09:03)
[2021-09-03] MEDS: PRENATAL VITAMIN 1 TAB PO SCH (09:03)
--- NOTE | 2021-09-03 09:08 | Obstetrical Progress Note ---
Date of Service September 03, 2021 Subjective Ambulation: ambulating normally Voiding: no voiding problems Passing Gas:: Yes Diet Tolerance:: regular diet Lochia:: Small Feeding Type:: breast feeding Current Pain Level(1-10): 2 doing well plans for d/c in AM Physical Exam Constitutional WD/WN, vitals as above comfortable abdomen soft and non-tender fundus firm no edema neg John's for d/c in AM Results & Data ([facility]) Vital Signs (Past 12 Hours) Vital Signs Temp Pulse Resp BP Pulse Ox 09/03/21 07:58 37.0 C 104 H 20 134/90 98 09/03/21 04:10 37.0 C 87 18 121/85 09/03/21 00:10 36.7 C 88 18 127/87 09/02/21 21:35 37.1 C 101 H 18 123/83 09/02/21 21:15 18 Laboratory Results Laboratory Results - last 72 hr 09/02/21 09/02/21 09/02/21 08:43 08:43 Unknown WBC 9.01 RBC 4.23 Hgb 13.1 Hct 39.0 MCV 92.2 MCH 31.0 MCHC 33.6 RDW Std Deviation 45.2 RDW Coeff of Garo 13.5 Plt Count 131 MPV 11.1 H Immature Gran % (Auto) 0.1 Neut % (Auto) 69.3 Lymph % (Auto) 22.0 [place] % (Auto) 8.1 Eos % (Auto) 0.4 Baso % (Auto) 0.1 Neut # (Auto) 6.24 Lymph # (Auto) 1.98 [place] # (Auto) 0.73 H Eos # (Auto) 0.04 Baso # (Auto) 0.01 Immature Gran # (Auto) 0.01 Absolute Nucleated RBC 0.03 H Nucleated RBC % (auto) 0.4 Sodium 140 Potassium 3.9 Chloride 110 H Carbon Dioxide 22 Anion Gap 9.0 BUN 5 L Creatinine 0.59 L Est Cr Clr Drug Dosing 145.0 Est GFR ( Amer) 146.6 Est GFR (Non-Af Amer) 126.5 BUN/Creatinine Ratio 9.2 L Glucose 100 H Calcium 8.5 Total Bilirubin 0.2 AST 12 L ALT 17 Alkaline Phosphatase 117 Total Protein 6.2 L Albumin 2.5 L Globulin 3.7 Albumin/Globulin Ratio 0.7 L Urine Color Urine Appearance Urine pH Ur Specific [place] Urine Protein Urine Glucose (UA) Urine Ketones Urine Blood Urine Nitrite Urine Bilirubin Urine Urobilinogen Ur Leukocyte Esterase Urine WBC (Auto) Urine RBC (Auto) U Hyaline Cast (Auto) U Epithel Cells (Auto) Urine Bacteria (Auto) Ur Renal Epithelial Cell Ur Random Creatinine U Random Total Protein Protein/Creatinin Ratio SARS-CoV-2, RNA, NAAT NEGATIVE 09/02/21 09/02/21 09/03/21 Unknown Unknown 06:14 WBC 11.67 H RBC 3.79 L Hgb 11.6 L Hct 35.1 L MCV 92.6 MCH 30.6 MCHC 33.0 RDW Std Deviation 46.2 RDW Coeff of Garo 13.7 Plt Count 120 L MPV 11.2 H Immature Gran % (Auto) Neut % (Auto) Lymph % (Auto) [place] % (Auto) Eos % (Auto) Baso % (Auto) Neut # (Auto) Lymph # (Auto) [place] # (Auto) Eos # (Auto) Baso # (Auto) Immature Gran # (Auto) Absolute Nucleated RBC Nucleated RBC % (auto) Sodium Potassium Chloride Carbon Dioxide Anion Gap BUN Creatinine Est Cr Clr Drug Dosing Est GFR ( Amer) Est GFR (Non-Af Amer) BUN/Creatinine Ratio Glucose Calcium Total Bilirubin AST ALT Alkaline Phosphatase Total Protein Albumin Globulin Albumin/Globulin Ratio Urine Color Yellow Urine Appearance Clear Urine pH 6.5 Ur Specific [place] 1.009 Urine Protein Negative Urine Glucose (UA) Negative Urine Ketones Negative Urine Blood Negative Urine Nitrite Negative Urine Bilirubin Negative Urine Urobilinogen Negative Ur Leukocyte Esterase 2+ H Urine WBC (Auto) 10-30 H Urine RBC (Auto) 0-4 U Hyaline Cast (Auto) 5-10 H U Epithel Cells (Auto) >30 H Urine Bacteria (Auto) 1+ H Ur Renal Epithelial Cell Not Reportable Ur Random Creatinine 57.1 U Random Total Protein 6.6 Protein/Creatinin Ratio 0.1 SARS-CoV-2, RNA, NAAT
[2021-09-03] MEDS ORDERED: bisacodyL 5 MG TABEC PO SCH (20:00)
[2021-09-04] MEDS: IBUPROFEN 600 MG TAB PO PRN (03:18)
[2021-09-04 06:26] LABS: Hematocrit (blood only) 34.3 % (37-47); Hemoglobin 11.2 g/dL (12.0-16.0)
--- NOTE | 2021-09-04 08:13 | Obstetrical Progress Note ---
Date of Service September 04, 2021 Assessment & Plan Admission and Anticipated Discharge Date Admission Date: September 02, 2021 Subjective Patient is seen and examined. She feels well, no complaints. Ambulating without dizziness Voiding without difficulty Tolerating regular diet with out N&V Bleeding is minimal No fever/ chills/ CP/ SOB/ N&V/ Leg pain Breast feeding without problems Vital Signs Temp Pulse Resp BP Pulse Ox 09/04/21 07:43 36.9 C 87 18 120/84 09/04/21 01:00 36.9 C 103 H 20 132/84 98 09/03/21 19:30 37.0 C 94 H 18 130/85 98 09/03/21 15:17 37.0 C 94 H 20 145/86 H 98 09/03/21 11:46 37.0 C 91 H 20 146/91 H 95 Lab Results 09/02/21 09/02/21 09/02/21 Range/Units 08:43 08:43 Unknown WBC 9.01 (4.8-10.8) K/uL RBC 4.23 (4.2-5.4) M/uL Hgb 13.1 (12.0-16.0) g/dL Hct 39.0 (37-47) % MCV 92.2 (80-100) fL MCH 31.0 (25-34) pg MCHC 33.6 (32-36) g/dL RDW Std Deviation 45.2 (36.4-46.3) fL RDW Coeff of Garo 13.5 (11.5-14.5) % Plt Count 131 (130-400) K/uL MPV 11.1 H (7.4-10.4) fL Immature Gran % (Auto) 0.1 % Neut % (Auto) 69.3 % Lymph % (Auto) 22.0 % [place] % (Auto) 8.1 % Eos % (Auto) 0.4 % Baso % (Auto) 0.1 % Neut # (Auto) 6.24 (1.4-6.5) K/uL Lymph # (Auto) 1.98 (1.2-3.4) K/uL [place] # (Auto) 0.73 H (0.11-0.59) K/uL Eos # (Auto) 0.04 (0-0.5) K/uL Baso # (Auto) 0.01 (0-0.2) K/uL Immature Gran # (Auto) 0.01 (0.00-0.02) K/uL Absolute Nucleated RBC 0.03 H (0-0) K/uL Nucleated RBC % (auto) 0.4 % Sodium 140 (136-145) mmol/L Potassium 3.9 (3.5-5.1) mmol/L Chloride 110 H (98-107) mmol/L Carbon Dioxide 22 (21-32) mmol/L Anion Gap 9.0 (3-11) BUN 5 L (7-18) mg/dl Creatinine 0.59 L (0.6-1.2) mg/dl Est Cr Clr Drug Dosing 145.0 ml/min Est GFR ( Amer) 146.6 ml/min Est GFR (Non-Af Amer) 126.5 ml/min BUN/Creatinine Ratio 9.2 L (10-20) Glucose 100 H (70-99) mg/dl Calcium 8.5 (8.5-10.1) mg/dl Total Bilirubin 0.2 (0.2-1) mg/dl AST 12 L (15-37) U/L ALT 17 (12-78) Alkaline Phosphatase 117 (45-117) U/L Total Protein 6.2 L (6.4-8.2) gm/dl Albumin 2.5 L (3.4-5.0) gm/dl Globulin 3.7 (2.5-4.0) gm/dl Albumin/Globulin Ratio 0.7 L (0.9-2) Urine Color Urine Appearance (Clear) Urine pH (4.5-7.5) Ur Specific [place] (1.000-1.030) Urine Protein (Negative) Urine Glucose (UA) (Negative) Urine Ketones (Negative) Urine Blood (Negative) Urine Nitrite (Negative) Urine Bilirubin (Negative) Urine Urobilinogen (Negative) Ur Leukocyte Esterase (Negative) Urine WBC (Auto) (0-5) /hpf Urine RBC (Auto) (0-4) /hpf U Hyaline Cast (Auto) (0-5) /lpf U Epithel Cells (Auto) (0-5) /lpf Urine Bacteria (Auto) (Negative) Ur Renal Epithelial Cell Ur Random Creatinine mg/dl U Random Total Protein (0-11.9) mg/dl Protein/Creatinin Ratio (0-0.2) SARS-CoV-2, RNA, NAAT NEGATIVE (NEGATIVE) 09/02/21 09/02/21 09/03/21 Range/Units Unknown Unknown 06:14 WBC 11.67 H (4.8-10.8) K/uL RBC 3.79 L (4.2-5.4) M/uL Hgb 11.6 L (12.0-16.0) g/dL Hct 35.1 L (37-47) % MCV 92.6 (80-100) fL MCH 30.6 (25-34) pg MCHC 33.0 (32-36) g/dL RDW Std Deviation 46.2 (36.4-46.3) fL RDW Coeff of Garo 13.7 (11.5-14.5) % Plt Count 120 L (130-400) K/uL MPV 11.2 H (7.4-10.4) fL Immature Gran % (Auto) % Neut % (Auto) % Lymph % (Auto) % [place] % (Auto) % Eos % (Auto) % Baso % (Auto) % Neut # (Auto) (1.4-6.5) K/uL Lymph # (Auto) (1.2-3.4) K/uL [place] # (Auto) (0.11-0.59) K/uL Eos # (Auto) (0-0.5) K/uL Baso # (Auto) (0-0.2) K/uL Immature Gran # (Auto) (0.00-0.02) K/uL Absolute Nucleated RBC (0-0) K/uL Nucleated RBC % (auto) % Sodium (136-145) mmol/L Potassium (3.5-5.1) mmol/L Chloride (98-107) mmol/L Carbon Dioxide (21-32) mmol/L Anion Gap (3-11) BUN (7-18) mg/dl Creatinine (0.6-1.2) mg/dl Est Cr Clr Drug Dosing ml/min Est GFR ( Amer) ml/min Est GFR (Non-Af Amer) ml/min BUN/Creatinine Ratio (10-20) Glucose (70-99) mg/dl Calcium (8.5-10.1) mg/dl Total Bilirubin (0.2-1) mg/dl AST (15-37) U/L ALT (12-78) Alkaline Phosphatase (45-117) U/L Total Protein (6.4-8.2) gm/dl Albumin (3.4-5.0) gm/dl Globulin (2.5-4.0) gm/dl Albumin/Globulin Ratio (0.9-2) Urine Color Yellow Urine Appearance Clear (Clear) Urine pH 6.5 (4.5-7.5) Ur Specific [place] 1.009 (1.000-1.030) Urine Protein Negative (Negative) Urine Glucose (UA) Negative (Negative) Urine Ketones Negative (Negative) Urine Blood Negative (Negative) Urine Nitrite Negative (Negative) Urine Bilirubin Negative (Negative) Urine Urobilinogen Negative (Negative) Ur Leukocyte Esterase 2+ H (Negative) Urine WBC (Auto) 10-30 H (0-5) /hpf Urine RBC (Auto) 0-4 (0-4) /hpf U Hyaline Cast (Auto) 5-10 H (0-5) /lpf U Epithel Cells (Auto) >30 H (0-5) /lpf Urine Bacteria (Auto) 1+ H (Negative) Ur Renal Epithelial Cell Not Reportable Ur Random Creatinine 57.1 mg/dl U Random Total Protein 6.6 (0-11.9) mg/dl Protein/Creatinin Ratio 0.1 (0-0.2) SARS-CoV-2, RNA, NAAT (NEGATIVE) 09/04/21 Range/Units 06:13 WBC (4.8-10.8) K/uL RBC (4.2-5.4) M/uL Hgb 11.2 L (12.0-16.0) g/dL Hct 34.3 L (37-47) % MCV (80-100) fL MCH (25-34) pg MCHC (32-36) g/dL RDW Std Deviation (36.4-46.3) fL RDW Coeff of Garo (11.5-14.5) % Plt Count (130-400) K/uL MPV (7.4-10.4) fL Immature Gran % (Auto) % Neut % (Auto) % Lymph % (Auto) % [place] % (Auto) % Eos % (Auto) % Baso % (Auto) % Neut # (Auto) (1.4-6.5) K/uL Lymph # (Auto) (1.2-3.4) K/uL [place] # (Auto) (0.11-0.59) K/uL Eos # (Auto) (0-0.5) K/uL Baso # (Auto) (0-0.2) K/uL Immature Gran # (Auto) (0.00-0.02) K/uL Absolute Nucleated RBC (0-0) K/uL Nucleated RBC % (auto) % Sodium (136-145) mmol/L Potassium (3.5-5.1) mmol/L Chloride (98-107) mmol/L Carbon Dioxide (21-32) mmol/L Anion Gap (3-11) BUN (7-18) mg/dl Creatinine (0.6-1.2) mg/dl Est Cr Clr Drug Dosing ml/min Est GFR ( Amer) ml/min Est GFR (Non-Af Amer) ml/min BUN/Creatinine Ratio (10-20) Glucose (70-99) mg/dl Calcium (8.5-10.1) mg/dl Total Bilirubin (0.2-1) mg/dl AST (15-37) U/L ALT (12-78) Alkaline Phosphatase (45-117) U/L Total Protein (6.4-8.2) gm/dl Albumin (3.4-5.0) gm/dl Globulin (2.5-4.0) gm/dl Albumin/Globulin Ratio (0.9-2) Urine Color Urine Appearance (Clear) Urine pH (4.5-7.5) Ur Specific [place] (1.000-1.030) Urine Protein (Negative) Urine Glucose (UA) (Negative) Urine Ketones (Negative) Urine Blood (Negative) Urine Nitrite (Negative) Urine Bilirubin (Negative) Urine Urobilinogen (Negative) Ur Leukocyte Esterase (Negative) Urine WBC (Auto) (0-5) /hpf Urine RBC (Auto) (0-4) /hpf U Hyaline Cast (Auto) (0-5) /lpf U Epithel Cells (Auto) (0-5) /lpf Urine Bacteria (Auto) (Negative) Ur Renal Epithelial Cell Ur Random Creatinine mg/dl U Random Total Protein (0-11.9) mg/dl Protein/Creatinin Ratio (0-0.2) SARS-CoV-2, RNA, NAAT (NEGATIVE) PE: General: Alert, orientedx3, NAD Abd: soft, NT, fundus firm, below Umbilicus Perineum intact, Lochia rubra minimal Digital vaginal exam normal, intact sutures, no sponge Ext; NT, no edema AP: 26 yo s/p , ppd# 2 VSS Afebrile doing well Continue routine care All questions were answered Discussed when to call D/C home , f/u in office Results & Data ([facility]) Vital Signs (Past 12 Hours) Vital Signs Temp Pulse Resp BP Pulse Ox 09/04/21 07:43 36.9 C 87 18 120/84 09/04/21 01:00 36.9 C 103 H 20 132/84 98
[2021-09-04] MEDS: PRENATAL VITAMIN 1 TAB PO SCH (08:14)
[2021-09-04] MEDS: DOCUSATE SODIUM 100 MG CAP PO SCH (08:14)
[2021-09-04] MEDS: FERROUS SULFATE 325 MG TAB PO SCH (08:14)
== END 2021-09-04 14:08 | disposition home or self-care (01) | DRG 807 ==
LOC: 4S1 07:51 → 4S2 21:32